=== PATIENT | male | born 1950 | race Caucasian/White ===

== ENCOUNTER 2019-09-01 12:40 | Emergency (ER) | payer OTHER ==
[~2019-09-01] VITALS: Ht 190.5 cm; Wt 84.8 kg
[2019-09-01 13:15] LABS: BASOPHILS ABSOLUTE AUTO 0.06 K/mm3 (0.00-0.23); BASOPHILS PERCENT AUTO 1 % (0-2); EOSINOPHILS ABSOLUTE AUTO 0.14 K/mm3 (0.00-0.68); EOSINOPHILS PERCENT AUTO 2 % (0-6); Hematocrit 45.8 % (37.0-53.0); Hemoglobin 15.9 g/dL (13.5-17.5); IMMATURE GRAN ABSOLUTE AUTO 0.02 K/mm3 (0.00-0.10); IMMATURE GRAN PERCENT AUTO 0 % (0-1); LYMPHOCYTES ABSOLUTE AUTO 1.69 K/mm3 (0.84-5.20); LYMPHOCYTES PERCENT AUTO 25 % (21-46); MONOCYTES ABSOLUTE AUTO 0.67 K/mm3 (0.16-1.47); MONOCYTES PERCENT AUTO 10 % (4-13); Mean Corpuscular HGB 32.8 pg (26.0-34.0); Mean Corpuscular HGB Conc 34.7 g/dL (31.5-36.5); Mean Corpuscular Volume 94 fL (80-100); NEUTROPHILS ABSOLUTE AUTO 4.07 K/mm3 (1.96-9.15); NEUTROPHILS PERCENT AUTO 61 % (41-73); Platelet Count 201 K/mm3 (150-400); RDW Coefficient Variation 14.6 % (11.7-14.2); Red Blood Cell Count 4.85 M/mm3 (4.30-5.90); White Blood Cell Count 6.65 K/mm3 (4.00-11.30)
[2019-09-01 13:41] LABS: Troponin I <0.015 ng/mL (0.000-0.040)
[2019-09-01 13:42] LABS: Alanine Aminotransfer (ALT/SGP 25 U/L (12-78); Albumin, Blood 4.2 g/dL (3.4-5.0); Albumin/Globulin Ratio 1.4 (0.8-1.8); Alk Phos 80 U/L (50-136); Anion Gap 6 mmol/L (6-16); Aspartate Aminotrans (AST/SGOT 19 U/L (12-37); Bilirubin, Total 1.4 mg/dL (0.1-1.0); Blood Urea Nitrogen 12 mg/dL (8-24); Bun/Creatinine Ratio 14.2 (12.0-20.0); CO2, Blood 26 mmol/L (21-32); Chloride, Blood 107 mmol/L (98-108); Creatinine, Blood 0.85 mg/dL (0.60-1.20); Glomerular Filtration Rate >60 (60-); Glucose, Blood 100 mg/dL (70-99); Potassium, Blood 3.9 mmol/L (3.5-5.5); Sodium, Blood 139 mmol/L (136-145); Total Protein, Blood 7.2 g/dL (6.4-8.2)
[2019-09-01] MEDS ORDERED: Pepcid20 MG PO (14:58)
== END 2019-09-01 15:06 | disposition home or self-care (01) ==
LOC: ER 12:40
PROVIDERS: Emergency Medicine
DX: R07.9 Chest pain, unspecified (principal); F17.210 Nicotine dependence, cigarettes, uncomplicated
CPT/HCPCS: 71046; 80053; 84484; 85025; 93005; 93010; 99285-25

== ENCOUNTER 2020-06-09 12:48 | Emergency (ER) | payer MEDICARE, OTHER ==
[~2020-06-09] VITALS: Ht 188 cm; Wt 86.2 kg
[~2020-06-09 12:48] MED LIST: Pepcid20 MG PO
[2020-06-09] MEDS ORDERED: Zithromax250 MG PO ×2 (13:25→13:44)
[2020-06-09] MEDS ORDERED: METPRE4DP PO ×2 (13:25→13:44)
[2020-06-09] MEDS ORDERED: Prinivil10 MG PO (13:36)
== END 2020-06-09 13:45 | disposition home or self-care (01) ==
LOC: ER 12:48
DX: J41.1 Mucopurulent chronic bronchitis (principal); E87.6 Hypokalemia; Z79.899 Other long term (current) drug therapy; F17.210 Nicotine dependence, cigarettes, uncomplicated
CPT/HCPCS: 99283

== ENCOUNTER 2020-10-17 11:41 | Emergency (ER) | payer MEDICARE, OTHER ==
[~2020-10-17] VITALS: Ht 190.5 cm; Wt 84.8 kg
[~2020-10-17 11:41] MED LIST changes: +METPRE4DP PO; +Prinivil10 MG PO; +Zithromax250 MG PO
[2020-10-17 12:06] LABS: BASOPHILS ABSOLUTE AUTO 0.06 K/mm3 (0.00-0.23); BASOPHILS PERCENT AUTO 1 % (0-2); EOSINOPHILS ABSOLUTE AUTO 0.18 K/mm3 (0.00-0.68); EOSINOPHILS PERCENT AUTO 2 % (0-6); Hematocrit 48.2 % (37.0-53.0); Hemoglobin 16.8 g/dL (13.5-17.5); IMMATURE GRAN ABSOLUTE AUTO 0.02 K/mm3 (0.00-0.10); IMMATURE GRAN PERCENT AUTO 0 % (0-1); LYMPHOCYTES ABSOLUTE AUTO 1.71 K/mm3 (0.84-5.20); LYMPHOCYTES PERCENT AUTO 22 % (21-46); MONOCYTES ABSOLUTE AUTO 0.81 K/mm3 (0.16-1.47); MONOCYTES PERCENT AUTO 11 % (4-13); Mean Corpuscular HGB 33.3 pg (26.0-34.0); Mean Corpuscular HGB Conc 34.9 g/dL (31.5-36.5); Mean Corpuscular Volume 96 fL (80-100); Mean Platelet Volume 12.9 fL (9.1-12.4); NEUTROPHILS ABSOLUTE AUTO 4.89 K/mm3 (1.96-9.15); NEUTROPHILS PERCENT AUTO 64 % (41-73); Platelet Count 192 K/mm3 (150-400); RDW Coefficient Variation 13.5 % (11.7-14.2); Red Blood Cell Count 5.04 M/mm3 (4.30-5.90); White Blood Cell Count 7.67 K/mm3 (4.00-11.30)
[2020-10-17 12:28] LABS: Troponin I <0.015 ng/mL (0.000-0.040)
[2020-10-17 12:29] LABS: Alanine Aminotransfer (ALT/SGP 21 U/L (12-78); Albumin/Globulin Ratio 1.1 (0.8-1.8); Alk Phos 97 U/L (50-136); Anion Gap 5 mmol/L (6-16); Aspartate Aminotrans (AST/SGOT 11 U/L (12-37); Bilirubin, Total 1.8 mg/dL (0.1-1.0); Blood Urea Nitrogen 18 mg/dL (8-24); Bun/Creatinine Ratio 20.2 (12.0-20.0); CO2, Blood 28 mmol/L (21-32); Chloride, Blood 110 mmol/L (98-108); Creatinine, Blood 0.89 mg/dL (0.60-1.20); Globulin, Blood 3.5 g/dL (2.2-4.0); Glomerular Filtration Rate >60 (60-); Glucose, Blood 81 mg/dL (70-99); Potassium, Blood 3.8 mmol/L (3.5-5.5); Sodium, Blood 143 mmol/L (136-145); Total Protein, Blood 7.5 g/dL (6.4-8.2)
[2020-10-17] MEDS ORDERED: AMOCLA875 PO (14:33)
[2020-10-17] MEDS ORDERED: Zithromax250 MG PO (14:33)
== END 2020-10-17 14:43 | disposition home or self-care (01) ==
LOC: ER 11:41
PROVIDERS: Emergency Medicine
DX: J18.9 Pneumonia, unspecified organism (principal); F17.210 Nicotine dependence, cigarettes, uncomplicated; I10 Essential (primary) hypertension; J45.909 Unspecified asthma, uncomplicated; Z79.899 Other long term (current) drug therapy
CPT/HCPCS: 36415; 71046; 80053; 84484; 85025; 93005; 93010; 99284-25; A9270

== ENCOUNTER → 2023-05-12 | Outpatient (CLI) | payer MEDICARE, OTHER ==
[~2023-05-12] MED LIST changes: +AMOCLA875 PO; +Ciloxan5 ML LEFTEYE; +ZOLOFT25 MG PO
== END ==
LOC: LAB SHORT 18:02 → LAB 18:02
DX: R30.0 Dysuria (principal)
CPT/HCPCS: 87086